=== PATIENT | male | born 1980 | race Caucasian/White ===

== ENCOUNTER 2021-02-03 12:24 | Emergency (ER) | payer BC, OTHER ==
[2021-02-03] MEDS ORDERED: Ketorolac 15 MG/ML SDV IVPUSH ONE (13:01)
[2021-02-03] MEDS ORDERED: Ondansetron 4 MG/2 ML SDV IVPUSH ONE (13:01)
[2021-02-03] MEDS ORDERED: Ketorolac 30 MG/ML SDV IVPUSH STA (13:10)
[2021-02-03] MEDS ORDERED: Dextrose 5%-Lactated Ringers 1,000 ML IV SCH (13:15)
[2021-02-03 13:33] LABS: BLOOD UREA NITROGEN,BUN 9 mg/dL (7.0-18.0); CARBON DIOXIDE,CO2 25.1 mmol/L (21.0-32.0); CHLORIDE,CL 97 mmol/L (98-107); GLUCOSE RANDOM 109 mg/dL (74-106); POTASSIUM,K 3.2 mmol/L (3.5-5.1); SODIUM,NA 134 mmol/L (136-148)
--- NOTE | 2021-02-03 13:42 | CR ---
Indication: Right chest pain Comparison: Single view chest January 24, 2018 Technique: Single AP view chest Findings: There is hyperinflation and chronic interstitial change. There is no focal consolidation, effusion, or pneumothorax. The cardiomediastinal silhouette is within normal limits. The bony thorax is grossly intact. Impression: No acute cardiopulmonary abnormality. Dictated by Geoffrey Benito MD @ 02/03/2021 1:42:29 PM (Electronically Signed)
[2021-02-03 13:47] LABS: CORONAVIRUS COVID-19 NAA NEGATIVE (NEGATIVE); INFLUENZA A NAA NEGATIVE (NEGATIVE); INFLUENZA B NAA NEGATIVE (NEGATIVE)
--- NOTE | 2021-02-03 14:41 | EDM.PDOC ---
ED HPI GENERAL MEDICAL PROBLEM - General Chief Complaint: Chest Pain Stated Complaint: CHEST PAIN Time Seen by Provider: 02/03/21 12:26 - History of Present Illness INITIAL COMMENTS - FREE TEXT/NARRATIVE: CHIEF COMPLAINT(S): "I accidentally drink too much." HISTORY OF PRESENT ILLNESS: This is a 40-year-old man without any significant past medical history who comes to the emergency department with a chief complaint of "I accidentally drank too much." The patient states that he "accidentally drank too much." He states that he had about half a bottle of fireball liquor and a bunch of beer. He states that he does not drink that much daily. He states that he presents because he "just feels bad." He feels like he is shaky but denies any vomiting, chest pain, shortness of breath, abdominal pain, nausea or vomiting. He states that he does have some mild right-sided chest pain which he describes as a pinch which is located in one specific spot on the right side of her chest without any radiation. He describes it as achy and 5-6 out of 10. Movement exacerbates the pain. There are no relieving factors. He states he has not tried anything for the pain. There are no relieving factors. He denies any history of alcohol withdrawal REVIEW OF SYSTEMS: Constitutional: Positive for shakiness denies fever, chills. Eyes: Denies eye pain Ears, Nose, Mouth, & Throat: Denies earache Cardiovascular: Positive for right-sided chest pain Respiratory: Denies shortness of breath Gastrointestinal: Denies Nausea, vomiting, diarrhea, hematochezia. Genitourinary: Denies hematuria Skin:Denies a rash MSK: Denies joint pain Neurological: Denies blurred vision, numbness, tingling, weakness Psychiatric: Denies depression PAST MEDICAL HISTORY: As per history of present illness and as reviewed below otherwise noncontributory. SURGICAL HISTORY: As per history of present illness and as reviewed below otherwise noncontributory. SOCIAL HISTORY: As per history of present illness and as reviewed below otherwise noncontributory. FAMILY HISTORY: As per history of present illness and as reviewed below otherwise noncontributory. EXAMINATION OF ORGAN SYSTEMS/BODY AREAS: Constitutional: Blood pressure is 65/100, heart rate 105, respiratory rate 18 with an oxygen saturation 97% on room air. Temperature 36.7 General: Young man who does not appear to be acute distress Psychiatric: Appropriate mood and affect. Eyes: No scleral icterus or conjunctival erythema pupils are equal round reactive to light. Corrective movements intact. No vertical or horizontal nystagmus. ENMT: Moist mucous membranes. No pharyngeal erythema Cardiovascular: Tachycardic but regular no gallops, murmurs, or rubs. Bilateral upper extremity pulses symmetric and intact. No peripheral edema. No JVD. Respiratory: Lungs clear to auscultation bilaterally. No wheezes, rales, or rhonchi. Gastrointestinal: Soft, non-tender, non-distended. Normoactive bowel sounds Genitourinary: No suprapubic tenderness Musculoskeletal: Normal range of motion. No tremors. Skin: No lesions or abrasions. Neurological: Alert, GCS 15 strength and sensation grossly intact in upper and lower extremities bilaterally MEDICAL DECISION MAKING AND COURSE IN THE ED WITH INTERPRETATION/REVIEW OF DIAGNOSTIC STUDIES: This is a 40-year-old man without any significant past medical history who comes to the emergency department with shakiness and not feeling well after drinking a significant amount of alcohol. I do believe his symptoms are likely secondary to a hangover from alcohol intoxication. We will provide the patient with D5 LR for rehydration and provide the patient with Toradol for his pain relief of his headache and 4 mg of Zofran. We will obtain a cardiac work-up. EKG was unremarkable. Will obtain a chest x-ray. Will obtain Covid influenza and RSV. We will reevaluate after work-up. DDx: Alcohol poisoning, ACS, pneumonia, Covid Heart Score History: Slightly or Non-Suspicious (0) ECG: Normal (0) Age: <45 (0) Risk Factors: 1-2 (1) Initial Troponin: </= normal limit (0) Total Score: 1 Wells Criteria Clinical signs/symptoms of DVT: No (0) PE #1 Dx or equally likely: No (0) Heart Rate >100: Yes (1.5) Immobilization for 3 days or surgery in last month: No (0) Previously Dx PE or DVT: No (0) Hemoptysis: No (0) Malignancy w/ Tx within 6 months or palliative: No (0) Wells Score: 1.5 -> Low risk Laboratory: CBC is unremarkable. CMP reveals hyponatremia at 132, hypochloremia at 97, hypokalemia 3.2 and elevated total bilirubin at 1.5 otherwise unremarkable. Troponin is negative. Covid and influenza are negative. On reevaluation patient reported symptomatic improvement. He was able to tolerate p.o. at this time. He does not have any further chest pain. I did discuss with patient that I do believe his symptoms are likely secondary to his alcohol intake last night. I discussed continued hydration and discussed strict return precautions. He was amenable to discharge and had no further questions DISPOSITION: The patient was discharged home in stable condition. The patient will follow up with primary care physician in 3 to 5 days CONDITION: Fair PROCEDURES: None FINAL IMPRESSION(S)/DIAGNOSES: 1. Acute atypical chest pain 2. Acute alcohol poisoning Pa Rose M.D. chest Pain Score (Numeric/FACES): 4 - Related Data Allergies Allergy/AdvReac Type Severity Reaction Status Date / Time No Known Allergies Allergy Verified 02/03/21 12:39 Home Meds: Home Meds Losartan/Hydrochlorothiazide [Losartan-HCTZ 100-12.5 MG] 25 - 100 mg PO DAILY 01/24/18 [History] Metoprolol Succinate 100 mg PO DAILY 01/24/18 [History] amLODIPine Besylate [Amlodipine Besylate] 0 mg PO DAILY 01/24/18 [History] Past Medical History HEENT History: Reports: Impaired Vision, Other (See Below) Other HEENT History: wears glasses Cardiovascular History: Reports: Hypertension Gastrointestinal History: Reports: None - Infectious Disease History Infectious Disease History: Reports: Chicken Pox - Past Surgical History HEENT Surgical History: Reports: None Cardiovascular Surgical History: Reports: None GI Surgical History: Reports: Cholecystectomy Social & Family History - Family History Family Medical History: No Pertinent Family History - Caffeine Use Caffeine Use: Reports: Coffee - Recreational Drug Use Recreational Drug Use: No ED ROS GENERAL - Review of Systems Review Of Systems: See Below ED EXAM, GENERAL - Physical Exam Exam: See Below Course - Vital Signs Last Recorded V/S: Last Vital Signs Temp 36.9 C 02/03/21 14:54 Pulse 85 02/03/21 14:54 Resp 16 02/03/21 14:54 BP 158/100 H 02/03/21 14:54 Pulse Ox 96 02/03/21 14:54 - Orders/Labs/Meds Labs: Laboratory Tests 02/03/21 02/03/21 02/03/21 Range/Units 12:25 12:25 12:30 WBC 9.63 (4.0-11.0) K/uL RBC 5.10 (4.50-5.90) M/uL Hgb 16.9 (13.0-17.0) g/dL Hct 45.9 (38.0-50.0) % MCV 90.0 (80.0-98.0) fL MCH 33.1 H (27.0-32.0) pg MCHC 36.8 (31.0-37.0) g/dL RDW Std Deviation 41.2 (28.0-62.0) fl RDW Coeff of Yola 13 (11.0-15.0) % Plt Count 271 (150-400) K/uL MPV 8.80 (7.40-12.00) fL Neut % (Auto) 74.4 (48.0-80.0) % Lymph % (Auto) 16.5 (16.0-40.0) % [place] % (Auto) 7.9 (0.0-15.0) % Eos % (Auto) 0.5 (0.0-7.0) % Baso % (Auto) 0.7 (0.0-1.5) % Neut # (Auto) 7.2 H (1.4-5.7) K/uL Lymph # (Auto) 1.6 (0.6-2.4) K/uL [place] # (Auto) 0.8 (0.0-0.8) K/uL Eos # (Auto) 0.1 (0.0-0.7) K/uL Baso # (Auto) 0.1 (0.0-0.1) K/uL Nucleated RBC % 0.0 /100WBC Nucleated RBCs # 0 K/uL Sodium 134 L (136-148) mmol/L Potassium 3.2 L (3.5-5.1) mmol/L Chloride 97 L (98-107) mmol/L Carbon Dioxide 25.1 (21.0-32.0) mmol/L BUN 9 (7.0-18.0) mg/dL Creatinine 0.9 (0.8-1.3) mg/dL Est Cr Clr Drug Dosing 112.65 mL/min Estimated GFR (MDRD) > 60.0 ml/min Glucose 109 H (74-106) mg/dL Calcium 9.0 (8.5-10.1) mg/dL Total Bilirubin 1.5 H (0.2-1.0) mg/dL AST 23 (15-37) IU/L ALT 35 (14-63) IU/L Alkaline Phosphatase 85 (46-116) U/L Troponin I < 0.050 (0.000-0.056) ng/mL Total Protein 7.8 (6.4-8.2) g/dL Albumin 4.3 (3.4-5.0) g/dL Globulin 3.5 (2.6-4.0) g/dL Albumin/Globulin Ratio 1.2 (0.9-1.6) Influenza Type A RNA NEGATIVE (NEGATIVE) Influenza Type B RNA NEGATIVE (NEGATIVE) SARS-CoV-2 RNA (ERLIN) NEGATIVE (NEGATIVE) Meds: Medications Discontinued Medications Generic Name Dose Route Start Last Admin Trade Name Freq PRN Reason Stop Dose Admin Dextrose/Lactated Ringer's 1,000 mls @ 999 mls/hr 02/03/21 13:15 02/03/21 13:21 Dextrose 5%-Lactated Ringers IV 999 mls/hr ASDIRECTED GILMA Administration Ketorolac Tromethamine 15 mg 02/03/21 13:01 02/03/21 13:22 Ketorolac 15 Mg/Ml Sdv IVPUSH 02/03/21 13:02 Not Given ONETIME ONE Ketorolac Tromethamine 30 mg 02/03/21 13:10 02/03/21 13:20 Ketorolac 30 Mg/Ml Sdv IVPUSH 02/03/21 13:11 30 mg ONETIME STA Administration Ondansetron HCl 4 mg 02/03/21 13:01 02/03/21 13:20 Ondansetron 4 Mg/2 Ml Sdv IVPUSH 02/03/21 13:02 4 mg ONETIME ONE Administration Departure - Departure Time of Disposition: 14:39 Disposition: Home, Self-Care 01 Condition: Fair Clinical Impression: Accidental poisoning by alcohol, Chest pain - Discharge Information *PRESCRIPTION DRUG MONITORING PROGRAM REVIEWED*: No *COPY OF PRESCRIPTION DRUG MONITORING REPORT IN PATIENT AIMEE: No Instructions: Alcohol Intoxication, [id number], Nonspecific Chest Pain, Adult, [id number] Referrals: Gage Torres MD [Primary Care Provider] - Forms: ED Department Discharge Additional Instructions: You were evaluated today on an emergent basis. At this time I do believe your symptoms are likely secondary to the alcohol you drink last night. As for the chest pain this could be musculoskeletal and your work-up was negative. I recommend use Tylenol and Motrin for pain relief. Please continue with fluid hydration at home including Gatorade and Pedialyte. If you have any worsening symptoms please return to the emergency department. The symptoms include worsening chest pain, shortness of breath, passing out. Please follow-up with primary care in 3 to 5 days. [facility] - Primary Care [address] [place] [address] [facility] [address] [place], [place] [id number] The patient is informed of any results of their evaluation and diagnostic workup and all questions are answered. They are given discharge instructions and return precautions. The patient is stable for discharge. The patient states they understand and agree with the plan and that they will return if their symptoms get worse or if they have any new concerns. The following information is given to patients seen in the emergency department who are being discharged to home. This information is to outline your options for follow-up care. We provide all patients seen in our emergency department with a follow-up referral. The need for follow-up, as well as the timing and circumstances, are variable depending upon the specifics of your emergency department visit. If you don't have a primary care physician on staff, we will provide you with a referral. We always advise you to contact your personal physician following an emergency department visit to inform them of the circumstance of the visit and for follow-up with them and/or the need for any referrals to a consulting specialist. The emergency department will also refer you to a specialist when appropriate. This referral assures that you have the opportunity for follow-up care with a specialist. All of these measure are taken in an effort to provide you with optimal care, which includes your follow-up. Under all circumstances we always encourage you to contact your private physician who remains a resource for coordinating your care. When calling for follow-up care, please make the office aware that this follow-up is from your recent emergency room visit. If for any reason you are refused follow-up, please contact the [facility] Emergency Department at and asked to speak to the emergency department charge nurse. Sepsis Event Note (ED) - Evaluation Sepsis Screening Result: No Definite Risk
--- NOTE | 2021-02-03 15:40 | PCM.EKG ---
#1 Interpretation EKG Date: 02/03/21 Time: 12:20 Rhythm: NSR Rate (Beats/Min): 101 [place]: Normal P-Wave: Present QRS: Normal ST-T: Normal QT: Normal Comparison: No Change (01/24/18) EKG Interpretation Comments: Sinus Tachycardia
== END 2021-02-03 14:55 | disposition home or self-care (01) ==
LOC: MW.ED 12:24
DX: T51.91XA Toxic effect of unspecified alcohol, accidental (unintentional), initial encounter (principal); R07.89 Other chest pain; I10 Essential (primary) hypertension; Z79.899 Other long term (current) drug therapy; Z20.822 Contact with and (suspected) exposure to COVID-19
CPT/HCPCS: 0240U; 36415; 71045; 80053; 84484; 85025; 96374; 96375; 99285; J1885; J2405; J7121

== ENCOUNTER 2022-08-08 09:11 | Emergency (ER) | payer OTHER ==
[2022-08-08] MEDS ORDERED: Sodium Chloride 0.9% 2.5 ML Syringe FLUSH PRN (09:48)
[2022-08-08] MEDS ORDERED: Sodium Chloride 0.9% 10 ML Syringe FLUSH PRN (09:48)
[2022-08-08] MEDS ORDERED: Ibuprofen 800 MG Tab PO ONE (09:50)
[2022-08-08 10:11] LABS: BASOPHILS PERCENT AUTO 0.7 % (0.0-1.5); EOSINOPHILS ABSOLUTE AUTO 0.5 K/uL (0.0-0.7); EOSINOPHILS PERCENT AUTO 8.6 % (0.0-7.0); HEMATOCRIT 40.7 % (38.0-50.0); HEMOGLOBIN 14.8 g/dL (13.0-17.0); LYMPHOCYTES ABSOLUTE AUTO 1.7 K/uL (0.6-2.4); LYMPHOCYTES PERCENT AUTO 31.9 % (16.0-40.0); MEAN CORPUSCULAR HEMOGLOBIN 32.7 pg (27.0-32.0); MEAN CORPUSCULAR HGB CONC 36.4 g/dL (31.0-37.0); MONOCYTES ABSOLUTE AUTO 0.5 K/uL (0.0-0.8); MONOCYTES PERCENT AUTO 9.9 % (0.0-15.0); NEUTROPHILS ABSOLUTE AUTO 2.6 K/uL (1.4-5.7); NEUTROPHILS PERCENT AUTO 48.9 % (48.0-80.0); NRBC ABSOLUTE 0 K/uL; PLATELET COUNT,PLT 192 K/uL (150-400); RED BLOOD CELL COUNT 4.52 M/uL (4.50-5.90); WHITE BLOOD CELL COUNT,WBC 5.36 K/uL (4.0-11.0)
[2022-08-08 10:30] LABS: D-DIMER QUANTITATIVE 0.36 mg/L FEU (0.00-0.50); INR 0.96 (0.86-1.11)
[2022-08-08 10:35] LABS: ALBUMIN 3.6 g/dL (3.4-5.0); BILIRUBIN TOTAL 0.4 mg/dL (0.2-1.0); CALCIUM 8.8 mg/dL (8.5-10.1); CARBON DIOXIDE,CO2 25.6 mmol/L (21.0-32.0); CREATININE 0.8 mg/dL (0.8-1.3); EST CRCL DRUG DOSING (CG) 128.11 mL/min; POTASSIUM,K 4.1 mmol/L (3.5-5.1); PROTEIN TOTAL,TP 7.3 g/dL (6.4-8.2)
== END 2022-08-08 12:03 | disposition home or self-care (01) ==
LOC: MW.ED 09:11
DX: R07.9 Chest pain, unspecified (principal); I10 Essential (primary) hypertension; F17.210 Nicotine dependence, cigarettes, uncomplicated
CPT/HCPCS: 36415; 71045; 80053; 83880; 84484; 85025; 85379; 85610; 99285; A9270; J3490; 93010; 99283